=== PATIENT | male | born 1945 ===

== ENCOUNTER 2021-11-23 06:02 | Day surgery (SDC) | payer OTHER ==
[~2021-11-23] VITALS: Ht 190.5 cm; Wt 104.3 kg
[~2021-11-23 06:02] MED LIST: ENALAPRIL MALE2.5 MG PO; FINASTERIDE5 MG PO; LASIX20 MG PO; LIPITOR20 MG PO; METFORMIN HCL1000 M2 PO; TOPROL XL100 M1 PO
[2021-11-23] MEDS ORDERED: PERCOCET 5-3251 EACH PO (12:21)
== END 2021-11-23 19:00 | disposition home or self-care (01) ==
LOC: CIR.AMB 06:02
PROVIDERS: ATTEND Surgery
DX: K64.8 Other hemorrhoids (principal); K62.5 Hemorrhage of anus and rectum; Z20.822 Contact with and (suspected) exposure to COVID-19; I10 Essential (primary) hypertension; E78.5 Hyperlipidemia, unspecified; G47.33 Obstructive sleep apnea (adult) (pediatric); Z99.89 Dependence on other enabling machines and devices; Z87.891 Personal history of nicotine dependence; E11.9 Type 2 diabetes mellitus without complications; Z79.84 Long term (current) use of oral hypoglycemic drugs